=== PATIENT | male | born 1995 | race Caucasian/White ===

== ENCOUNTER 2020-06-03 09:06 | Emergency (ER) | payer OTHER ==
[~2020-06-03] VITALS: Ht 172.7 cm; Wt 68.0 kg
--- NOTE | 2020-06-03 09:17 | NUR ---
Rosana perez in EDM - 06/03/20 at 0919 by [email or web address] Pt presents to ER with bodyaches and low grade fever, pt denies cough,respirations even and unlabored, cap refill <3, will cont to monitor
--- NOTE | 2020-06-03 09:17 | NUR ---
Patient to ER bed 03 to gown for evaluation. Side rails up.
[2020-06-03 09:19] VITALS: BP_SYST 118
--- NOTE | 2020-06-03 09:23 | NUR ---
Patient came from the [facility] for evaluation. He was with his girlfriend and sister drinking beer heavily last night. This morning he had a seizure that was witnessed by his girlfriend. He was noted to be vomiting in front of registration.
--- NOTE | 2020-06-03 09:28 | NUR ---
ER at bedside examining patient.
[2020-06-03 09:58] LABS: CALCIUM 9.2 mg/dL (8.4-11.0); CREATININE 1.34 mg/dL (0.55-1.30); POTASSIUM 3.8 mmol/L (3.5-5.1)
[2020-06-03] MEDS ORDERED: ONDANSETRON 4 MG ODT TAB PO ONE (10:00)
[2020-06-03 10:05] LABS: TOTAL BILIRUBIN 0.5 mg/dL (0.0-1.0)
[2020-06-03 10:06] LABS: BASOPHILS % (AUTO) 0.5 % (0.0-2.0); EOSINOPHILS % (AUTO) 0.1 % (0.0-4.0); HEMATOCRIT 44.7 % (36-54); HEMOGLOBIN 14.8 g/dL (14.0-18.0); LYMPHOCYTES # (AUTO) 1.3 K/uL (1.0-5.5); MEAN CORPUSCULAR HEMOGLOBIN 31 pg (27-31); MEAN CORPUSCULAR HGB CONC 33 % (32-36); MEAN CORPUSCULAR VOLUME 94 fL (79.0-98.0); MONOCYTES # (AUTO) 0.6 K/uL (0.0-1.0); MONOCYTES % (AUTO) 7.4 % (1.7-9.3); NEUTROPHILS # (AUTO) 5.7 K/uL (1.8-7.7); PLATELET COUNT (AUTO) 293 K/uL (130-430); RED BLOOD CELL COUNT(AUTO) 4.77 MIL/uL (4.2-6.2); WHITE BLOOD COUNT (AUTO) 7.6 K/uL (4.8-10.8)
[2020-06-03] MEDS ORDERED: DIPHENHYDRAMINE INJ 50 MG/ML VIAL IVP ONE (10:15)
[2020-06-03] MEDS ORDERED: PROCHLORPERAZINE EDISYLATE 10 MG/2 ML VIAL IVP ONE (10:15)
[2020-06-03] MEDS ORDERED: NACL 0.9% 1,000 ML IV ONE (10:15)
--- NOTE | 2020-06-03 11:34 | NUR ---
Patient given written and verbal discharge instructions and verbalizes understanding. ER MD discussed with patient the results and treatment provided. Patient in stable condition. ID arm band removed. IV catheter removed intact and dressing applied, no active bleeding. Rx of tramadol, zofran given. Patient educated on pain management and to follow up with PMD. Pain Scale 0/10. Opportunity for questions provided and answered. Medication side effect fact sheet provided.
[2020-06-03 11:35] VITALS: BP_SYST 139
== END 2020-06-03 11:35 | disposition home or self-care (01) ==
LOC: SED 09:06
DX: S06.0X0A Concussion without loss of consciousness, initial encounter (principal); R55 Syncope and collapse; F12.90 Cannabis use, unspecified, uncomplicated; W18.39XA Other fall on same level, initial encounter; Y93.89 Activity, other specified; Y92.89 Other specified places as the place of occurrence of the external cause; Y99.8 Other external cause status
CPT/HCPCS: 36415; 70450; 80053; 85025; 96361; 96374; 96375; 99284; J0780; J1200; J7030; Q0162